=== PATIENT | female | born 1960 | race Hispanic/Latino ===

== ENCOUNTER 2017-11-17 22:20 | Emergency (ER) | payer OTHER ==
[2017-11-17 22:20] VITALS: BMI 17.2
[2017-11-17 22:26] VITALS: BP 128/80; PULSE 86; RESP 17; TEMP 97.5; O2SAT 96
--- NOTE | 2017-11-17 23:18 | ED PDOC ---
HPI: General Adult Chief Complaint (Provider): BRBPR History Per: Patient History/Exam Limitations: no limitations Onset/Duration Of Symptoms: Hrs (1x episode of BRBPR at 9PM) Pain Scale Rating Of: 0 Similar Symptoms Previously: Denies <Dea Zaman - Last Filed: 11/18/17 01:44> <Tamara Mcclain Y - Last Filed: 11/19/17 02:59> Time Seen by Provider: 11/17/17 22:28 Chief Complaint (Nursing): GI Problem Additional Complaint(s): CC: BRBPR HPI: 57YO Female with PMH of Hashimotos disease and anemia presents to [facility] ED for bright red blood per rectum. Pt states that today around 9PM pt soiled her underwear and noticed bright red blood along with stool, and some on the tissue when pt wiped. Per pt, she has had changes in her BM leading up to 5-6 BM a day and episodes where she is incontinent. Additionally, pt endorses 1 episode 1 week ago where she had dark stool. Pt denies chest pain, dyspnea, abdominal pain , recent changes in weight, fatigue, n/v/d/c. Of note, pt has never had a colonoscopy in the past. Scheduled for a colonoscopy on 11/21. PMH: Hashimotos disease, anemia SurgHx: cholecystectomy, hysterectomy, cyst removal SH: drinks 8-10 24oz beers a day, occasional vodka, 32 year hx of smoking, denies illicit drug use FH: unknown Meds: levothyroxine, vitamin B12 Allergies: NKDA (Dea Zaman) Past Medical History - Medical History PMH: Anemia, HTN Other PMH: Hashimotos disease - Surgical History Surgical History: Cholecystectomy Other surgeries: cyst removal. Hysterectomy - Family History Family History: States: Unknown Family Hx - Living Arrangements Living Arrangements: With Family - Social History Current smoker - smoking cessation education provided: Yes Alcohol: > 2 Drinks/Day Drugs: Denies <JunieDea - Last Filed: 11/18/17 01:44> <Tamara Mcclain Y - Last Filed: 11/19/17 02:59> Vital Signs: Last Vital Signs Temp 97.5 F L 11/17/17 22:24 Pulse 86 11/17/17 22:24 Resp 17 11/17/17 22:24 BP 128/80 11/17/17 22:24 Pulse Ox 96 11/18/17 01:44 - Home Medications Home Medications: Ambulatory Orders Medication Instructions Recorded Cyclobenzaprine [Cyclobenzaprine 10 mg PO TID #10 tab 09/30/16 HCl] Naproxen [Naprosyn] 500 mg PO Q12H #20 tab 09/30/16 Simethicone [Mylicon Chew Tab] 80 mg PO BID #30 ctb 09/04/17 - Allergies Allergies/Adverse Reactions: Allergies Allergy/AdvReac Type Severity Reaction Status Date / Time No Known Allergies Allergy Verified 09/30/16 14:52 Review of Systems Constitutional: Negative for: Fever, Chills, Malaise Eyes: Negative for: Vision Change Cardiovascular: Negative for: Chest Pain, Palpitations Respiratory: Positive for: Cough. Negative for: Shortness of Breath, Wheezing Gastrointestinal: Positive for: Diarrhea, Melena. Negative for: Nausea, Vomiting, Abdominal Pain, Constipation Genitourinary Female: Negative for: Dysuria, Frequency Neurological: Negative for: Weakness, Numbness Psych: Negative for: Anxiety <JunieTenrox - Last Filed: 11/18/17 01:44> Physical Exam - Reviewed Vital Signs Reviewed: Yes - Physical Exam Appears: Positive for: Non-toxic, No Acute Distress Head Exam: Positive for: ATRAUMATIC, NORMAL INSPECTION, NORMOCEPHALIC Skin: Positive for: Normal Color, Warm, Dry Eye Exam: Positive for: Normal appearance, EOMI Neck: Positive for: Normal, Painless ROM Cardiovascular/Chest: Positive for: Regular Rate, Rhythm. Negative for: Murmur Respiratory: Positive for: Normal Breath Sounds. Negative for: Wheezing Gastrointestinal/Abdominal: Positive for: Normal Exam, Bowel Sounds, Soft. Negative for: Tenderness, Mass, Distended Rectal: Positive for: Normal Exam, Other (Normal tone, no blood noted on exam. ) . Negative for: Hemorrhoids, Mass, Tenderness Extremity: Positive for: Normal ROM. Negative for: Pedal Edema Neurologic/Psych: Positive for: Alert, Oriented <JunieDea - Last Filed: 11/18/17 01:44> - Laboratory Results Result Diagrams: 11/17/17 23:39 11/17/17 23:39 - ECG O2 Sat by Pulse Oximetry: 96 <JunieDea de santiago - Last Filed: 11/18/17 01:44> - Laboratory Results Result Diagrams: 11/17/17 23:39 11/17/17 23:39 <Tamara Mcclain - Last Filed: 11/19/17 02:59> - Progress ED Course And Treament: 57 YO Female with PMG of Hashimotos disease, anemia presents to ED for BRBPR. -CBC -CMP -PT/PTT/INR -Type and screen -Protonix -guiac stool neg Blood work appreciated, wnl Pt seen and revaluated. She feels well at this time. Has an apt with Dr. Deleon Gerontologist for a colonoscopy on 11/21/17 @ 10AM PT told her blood work results and recommended that she follow up with her PMD and GI doctor. Pt agrees with plan. (Dea Zaman) Medical Decision Making <Dea Zaman - Last Filed: 11/18/17 01:44> <Tamara Mcclain - Last Filed: 11/19/17 02:59> Medical Decision Making: pt exam normal hgb stable no bleedin in the ER stable for dc (Tamara Mcclain) Disposition - Disposition Disposition Time: 00:10 <Dea Zaman - Last Filed: 11/18/17 01:44> <Tamara Mcclain - Last Filed: 11/19/17 02:59> - Clinical Impression Clinical Impression: Rectal bleeding - Disposition Condition: IMPROVED Additional Instructions: follow up with your GI doctor this week return to ED with any worsening or concerning symptoms Instructions: Rectal Bleeding (ED) Forms: [employer] (Portuguese)
[2017-11-17 23:43] LABS: BASO # 0.1 K/uL (0.0-0.2); EOS # 0.2 K/uL (0.0-0.7); EOS % 2.8 % (0.0-4.0); HEMATOCRIT 39.5 % (34.0-47.0); LYMPH # 2.3 K/uL (1.0-4.3); LYMPH % 32.5 % (20.0-40.0); MEAN CELL VOLUME 94.3 fl (81.0-99.0); MEAN CORPUSCULAR HEMOGLOBIN 32.8 pg (27.0-31.0); MEAN CORPUSCULAR HGB CONC 34.7 g/dL (33.0-37.0); MEAN PLATELET VOLUME 10.2 fl (7.2-11.7); MONO # 0.5 K/uL (0.0-0.8); NEUT % 56.7 % (50.0-75.0); NRBC % 0.3 % (0.0-0.0); RED CELL DISTRIBUTION WIDTH 12.7 % (11.5-14.5)
[2017-11-17 23:54] LABS: ALB/GLOB RATIO 1.4 (1.0-2.1); ALKALINE PHOSPHATASE 48 U/L (38-126); ALT/SGPT 34 U/L (9-52); AST/SGOT 33 U/L (14-36); BILIRUBIN,TOTAL 0.3 mg/dl (0.2-1.3); BLOOD UREA NITROGEN 9 mg/dl (7-17); CALCIUM 8.8 mg/dL (8.4-10.2); CARBON DIOXIDE 21 mmol/L (22-30); CHLORIDE 109 mmol/L (98-107); GFR AFRICAN-AMERICAN > 60; GLUCOSE,RANDOM 80 mg/dL (65-105); POTASSIUM 3.6 MMOL/L (3.6-5.0); SODIUM 144 mmol/l (132-148); TOTAL PROTEIN 7.7 G/DL (6.3-8.2)
== END 2017-11-18 01:00 | disposition home or self-care (01) ==
LOC: H.ER 22:20
DX: K62.5 Hemorrhage of anus and rectum (principal); D64.9 Anemia, unspecified; R32 Unspecified urinary incontinence; E06.3 Autoimmune thyroiditis; F17.200 Nicotine dependence, unspecified, uncomplicated; I10 Essential (primary) hypertension; Z90.49 Acquired absence of other specified parts of digestive tract; Z90.710 Acquired absence of both cervix and uterus
CPT/HCPCS: 80053; 85025; 85610; 85730; 86850; 86900; 96374; 99283; C9113